=== PATIENT | male | born 1960 | race Caucasian/White ===

== ENCOUNTER 2018-04-21 07:20 | Day surgery (SDC) | payer OTHER ==
[2018-04-16 12:32] LABS: HEMATOCRIT 42.2 % (37.9-51.0); HEMOGLOBIN 14.7 g/dL (13.5-17.0); MEAN CORPUSCULAR HEMOGLOBIN 30.8 pg (27.0-33.4); MEAN CORPUSCULAR HGB CONC 34.7 g/dL (32.0-36.0); MEAN CORPUSCULAR VOLUME 89 fl (80-97); PLATELET COUNT 249 10^3/uL (150-450); RED BLOOD COUNT 4.76 10^6/uL (4.35-5.55); RED CELL DISTRIBUTION WIDTH 13.6 % (11.5-14.0); WHITE BLOOD COUNT 6.3 10^3/uL (4.0-10.5)
[2018-04-16 12:37] LABS: APPEARANCE,URINE CLEAR; BILIRUBIN,URINE NEGATIVE (NEGATIVE); COLOR,URINE COLORLESS; GLUCOSE, URINE NEGATIVE (NEGATIVE); KETONES,URINE NEGATIVE (NEGATIVE); LEUKOCYTE ESTERASE,URINE NEGATIVE (NEGATIVE); NITRITE,URINE NEGATIVE (NEGATIVE); PROTEIN,URINE NEGATIVE (NEGATIVE); URINE SPECIFIC GRAVITY 1.004; UROBILINOGEN,URINE NEGATIVE mg/dL (<2.0)
--- NOTE | 2018-04-16 12:37 | EKG REPORT ---
SEVERITY:- OTHERWISE NORMAL ECG - SINUS RHYTHM BORDERLINE LEFT AXIS DEVIATION : Confirmed by: Diamond Hanna MD 16-Apr-2018 12:37:31
[2018-04-16 12:54] LABS: ANION GAP 14 (5-19); BLOOD UREA NITROGEN 16 mg/dL (7-20); CALCIUM 9.5 mg/dL (8.4-10.2); CARBON DIOXIDE 25 mmol/L (22-30); CHLORIDE 104 mmol/L (98-107); GLUCOSE 89 mg/dL (75-110); POTASSIUM 4.4 mmol/L (3.6-5.0); SODIUM 142.8 mmol/L (137-145)
--- NOTE | 2018-04-16 13:13 | RADIOLOGY REPORT (SQ) ---
EXAM DESCRIPTION: CHEST PA/LATERAL COMPLETED DATE/TIME: 04/16/2018 1:01 pm REASON FOR STUDY: PRE OP COMPARISON: None. EXAM PARAMETERS: NUMBER OF VIEWS: two views TECHNIQUE: Digital Frontal and Lateral radiographic views of the chest acquired. RADIATION DOSE: NA LIMITATIONS: none FINDINGS: LUNGS AND PLEURA: No opacities, masses or pneumothorax. No pleural effusion. MEDIASTINUM AND HILAR STRUCTURES: No masses or contour abnormalities. HEART AND VASCULAR STRUCTURES: Heart normal size. No evidence for failure. BONES: Degenerative changes are identified in the thoracic spine. HARDWARE: None in the chest. OTHER: No other significant finding. IMPRESSION: NO SIGNIFICANT RADIOGRAPHIC FINDING IN THE CHEST. TECHNICAL DOCUMENTATION: JOB ID: [id number] [employer]- All Rights Reserved Reading location - IP/workstation name: [email or web address]
[~2018-04-21 07:20] MED LIST: CEFAZOLIN 2 GM/D5W RTU 2 GM/50 ML RTUPB IV PRN; LACTATED RINGERS 1000 ML IV PRN
[2018-04-21] MEDS ORDERED: CEFAZOLIN 2 GM/D5W RTU 2 GM/50 ML RTUPB IV ONE (08:09)
[2018-04-21] MEDS ORDERED: LIDOCAINE 1% INJ-PF (10 MG/ML) 30 ML SDV ONE (08:27)
[2018-04-21] MEDS ORDERED: BUPIVACAINE HCL 0.5%-EPI 1:200000 INJ/PF 30 ML VIAL ONE (08:27)
[2018-04-21] MEDS ORDERED: FENTANYL CITRATE INJ/PF 100 MCG/2 ML AMPUL ONE (09:15)
[2018-04-21] MEDS ORDERED: MIDAZOLAM 2 MG/2 ML INJ ONE (09:15)
[2018-04-21] MEDS ORDERED: KETOROLAC TROMETHAMINE 60 MG/2 ML SDV ONE (09:15)
[2018-04-21] MEDS ORDERED: PROPOFOL INJ 200 MG/20 ML VIAL IV ONE (09:15)
[2018-04-21] MEDS ORDERED: ACETAMINOPHEN 1,000 MG/100 ML RTUPB IV ONE (09:15)
[2018-04-21] MEDS ORDERED: ONDANSETRON HCL INJ/PF 4 MG/2 ML SDV ONE (09:15)
[2018-04-21] MEDS ORDERED: DEXAMETHASONE SOD PHOSPHATE INJ 4 MG/1 ML VIAL ONE (09:15)
[2018-04-21] MEDS ORDERED: FENTANYL CITRATE INJ/PF 100 MCG/2 ML AMPUL IV PRN ×3 (09:51)
[2018-04-21] MEDS ORDERED: OXYCODONE-ACETAMINOPHEN 5-325 MG TABLET PO PRN ×7 (09:51→10:41)
[2018-04-21] MEDS ORDERED: ONDANSETRON HCL INJ/PF 4 MG/2 ML SDV IV PRN (09:51)
[2018-04-21] MEDS ORDERED: MEPERIDINE HCL/PF INJ 25 MG/1 ML DISP.SYRIN IV PRN (09:51)
[2018-04-21] MEDS ORDERED: PROMETHAZINE HCL INJ 25 MG/1 ML VIAL IV PRN ×2 (09:51)
[2018-04-21] MEDS ORDERED: MORPHINE SULFATE 10 MG/ML INJ IV PRN (09:51)
[2018-04-21] MEDS ORDERED: DIPHENHYDRAMINE HCL 50 MG/ML VIAL IV PRN (09:51)
--- NOTE | 2018-04-21 10:03 | Operative Report ---
Operative Report DATE OF SURGERY: 04/21/18 PREOPERATIVE DIAGNOSIS: Right medial meniscal tear POSTOPERATIVE DIAGNOSIS: Bucket-handle tear right medial meniscus. 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 Intact ACL. Degenerative tear of the lateral meniscus. Grade 2 chondral malacia lateral compartment. Grade 2-3 chondral malacia patellofemoral compartment OPERATION: Arthroscopic right partial medial and lateral meniscectomy SURGEON: MANDY FLORES ANESTHESIA: LMAC ESTIMATED BLOOD LOSS: Minimal PROCEDURE: With the patient supine on the operative table the right lower extremities prepped and draped in a sterile fashion. The knee is insufflated with combination of Marcaine, Xylocaine, and epinephrine. Subsequent medial and lateral infrapatellar portals are created for the introduction of arthroscope and debridements mentation. The joint is examined in systematic fashion findings as above. Using combination mechanical bennett, Carter, and electric frequency ablation probe a partial medial meniscectomy was performed from proximal at 5:00 to 12:00 in the face of the dial. Similarly a partial lateral meniscectomy was performed from approximately 7:00 to 12:00 on the face of the dial. The joint is examined in systematic fashion no new findings. Instrumentation was removed. Portals reapproximated interrupted nylon. A sterile compressive dressing was applied. The patient's return to the PACU.
--- NOTE | 2018-04-21 10:05 | Discharge Summary ---
Discharge Summary (SDC) - Discharge Final Diagnosis: Right medial meniscal tear Date of Surgery: 04/21/18 Discharge Date: 04/21/18 Condition: Good Treatment or Instructions: Weightbearing as tolerated ambulation. Removed compressive wrap on Thursday. Prescriptions: Oxycodone HCl/Acetaminophen [Percocet 5-325 mg Tablet] 1 tab PO Q6 #40 tablet Referrals: DILLON SORTO FNP-C [Primary Care Provider] - Discharge Diet: As Tolerated, Regular Respiratory Treatments at Home: Deep Breathing/Coughing Discharge Activity: Balance Activity w/Rest, No Driving, No tub bath Home Care Assistance: None Needed Report the Following to Your Physician Immediately: Shortness of Breath, Fever over 101 Degrees, Drainage-Foul Smelling
[2018-04-21] MEDS ORDERED: OXYCODONE-ACETAMINOPHEN 5-325 MG TABLET ONE (10:44)
[2018-04-21 11:51] VITALS: BP 140/88
[2018-04-21] MEDS ORDERED: LIDOCAINE 2% INJ-PF (20 MG/ML) 2 ML AMPUL ONE (15:58)
== END 2018-04-21 11:50 | disposition home or self-care (01) ==
LOC: OROUT 07:20
PROVIDERS: ATTEND Orthopaedic Surgery
DX: M23.231 Derangement of other medial meniscus due to old tear or injury, right knee (principal); M23.200 Derangement of unspecified lateral meniscus due to old tear or injury, right knee; M22.41 Chondromalacia patellae, right knee; I10 Essential (primary) hypertension; Z96.652 Presence of left artificial knee joint; Z01.818 Encounter for other preprocedural examination; Z79.1 Long term (current) use of non-steroidal anti-inflammatories (NSAID); Z79.899 Other long term (current) drug therapy
CPT/HCPCS: 93005; 36415; 85027; 80048; 81001; 71046; 93010; 29880; J2250; J3490 ×3; J1100; J1885; J3010; J2405; J2704; J0690; J0131; 1400

== ENCOUNTER → 2018-07-06 | Outpatient (CLI) | payer OTHER ==
--- NOTE | 2018-07-06 15:08 | RADIOLOGY REPORT (SQ) ---
EXAM DESCRIPTION: CT ABD/PELVIS NO ORAL OR IV COMPLETED DATE/TIME: 07/06/2018 2:10 pm REASON FOR STUDY: LEFT FLANK PAIN R10.9 UNSPECIFIED ABDOMINAL PAIN COMPARISON: None. TECHNIQUE: CT scan of the abdomen and pelvis performed without intravenous or oral contrast. Images reviewed with lung, soft tissue, and bone windows. Reconstructed coronal and sagittal MPR images revi ewed. All images stored on PACS. All CT scanners at this facility use dose modulation, iterative reconstruction, and/or weight based d osing when appropriate to reduce radiation dose to as low as reasonably achievable (ALARA). [facility]: Dose Right [facility]: CareDose [facility]: Dose Right [facility]: Teradose 4D [facility]: Smart ORVIBO RADIATION DOSE: CT Rad equipment meets quality standard of care and radiation dose reduction techniq ues were employed. CTDIvol: 11.8 mGy. DLP: 709 mGy-cm.mGy. LIMITATIONS: None. FINDINGS: LOWER CHEST: No significant findings. No nodules or infiltrates. NON-CONTRASTED LIVER, SPLEEN, ADRENALS: Evaluation limited by lack of IV contrast. No identified sign ificant masses. PANCREAS: No masses. No peripancreatic inflammatory changes. GALLBLADDER: No identified stones by CT criteria. No inflammatory changes to suggest cholecystitis. RIGHT KIDNEY AND URETER: No suspicious masses. Assessment limited by lack of IV contrast. No signif icant calcifications. No hydronephrosis or hydroureter. LEFT KIDNEY AND URETER: No suspicious masses. Assessment limited by lack of IV contrast. No signifi cant calcifications. No hydronephrosis or hydroureter. AORTA AND RETROPERITONEUM: No aneurysm. No retroperitoneal masses or adenopathy. BOWEL AND PERITONEAL CAVITY: Mild sigmoid diverticulosis. No acute inflammatory changes. No obvious bowel mass. APPENDIX: Not identified. PELVIS, BLADDER, AND ABDOMINAL WALL:No abnormal masses. No free fluid. Bladder normal. BONES: Lumbar degenerative disc disease. OTHER: No other significant finding. IMPRESSION: 1. No acute urinary findings. 2. Diverticulosis coli. 3. Lumbar degenerative disc disease. COMMENT: Quality ID # [id number]: Final reports with documentation of one or more dose reduction techniques (e.g., Automated exposure control, adjustment of the mA and/or kV according to patient size, use of iterative reconstruction technique) TECHNICAL DOCUMENTATION: JOB ID: [id number] [employer]- All Rights Reserved Reading location - IP/workstation name: [email or web address]
== END ==
LOC: RAD 13:20
PROVIDERS: ATTEND Nurse Practitioner Family
DX: R10.9 Unspecified abdominal pain (principal)
CPT/HCPCS: 74176

== ENCOUNTER 2019-02-03 11:48 | Emergency (ER) | payer OTHER ==
--- NOTE | 2019-02-03 12:54 | ER Document Report ---
HPI - HPI Time Seen by Provider: 02/03/19 12:53 Pain Level: 5 Notes: 58-year-old male with a medical history of chronic back pain presents to the ED for evaluation of exacerbation of his right paraspinal back pain. Patient is Nick established with pain management, does see [facility], was seen approximately 2 days ago, given a Toradol injection. Patient has been seeing pain management for his back pain for the last 3 years, was not able to be seen today by pain management today, so came to the er. Denies any new trauma, recent falls. MRI of lumbar spine from September 04, 2015 showed: spondylolysis and mild ligament. Mild spinal stenosis at several levels. Disc herniation at L2-L3 contacts with transiting right L3 nerve root in the canal. patient states that he did have a lumbar MRI done approximately 3 days ago, is awaiting on report. denies fevers, chills, chest pain,palpitations, shortness of breath, dyspnea, nausea, vomiting, diarrhea, abdominal pain, hematuria,blurred vision, double vision, loss of vision, speech changes, LH, dizziness, syncope, headaches, wheezing, ST, URI, neck pain, weakness, bowel or bladder dysfunction, saddle anesthesia, worsening numbness or tingling lower extremities equally or n/t in BUE, muscle paralysis, weakness in bilateral upper or lower extremities equally or rash. Past Medical History - General Information source: Patient, Relative - Social History Smoking Status: Unknown if Ever Smoked Family History: Reviewed & Not Pertinent - Past Medical History Cardiac Medical History: Reports: Hx Hypertension Denies: Hx Coronary Artery Disease, Hx Heart Attack Pulmonary Medical History: Reports: Hx Bronchitis, Hx Pneumonia Denies: Hx Asthma, Hx COPD Neurological Medical History: Denies: Hx Cerebrovascular Accident, Hx Seizures Musculoskeletal Medical History: Reports Hx Arthritis - Immunizations Hx Diphtheria, Pertussis, Tetanus Vaccination: Yes Vertical Provider Document - CONSTITUTIONAL Agree With Documented VS: Yes Exam Limitations: No Limitations General Appearance: Moderate Distress Notes: PHYSICAL EXAMINATION: GENERAL: Well-appearing, well-nourished and in no acute distress. HEAD: Atraumatic, normocephalic. EYES: Pupils equal round and reactive to light, extraocular movements intact, sclera anicteric, conjunctiva are normal. ENT: Nares patent, oropharynx clear without exudates. Moist mucous membranes. NECK: Normal range of motion, supple without lymphadenopathy LUNGS: Breath sounds clear to auscultation bilaterally and equal. No wheezes rales or rhonchi. HEART: Regular rate and rhythm without murmurs ABDOMEN: Soft, nontender, nondistended abdomen. No guarding, no rebound. No masses appreciated. Musculoskeletal: Normal range of motion, no pitting or edema. No cyanosis. Pain with flexion and extension at 30 degrees, positive straight leg test bilaterally. Normal hip rotation. DTR +2 in BLE equally. Strength 5 out of 5 both distally and proximally to bilateral lower extremities normal motor and sensory function in BLE equally. Distal pulses + 2 BLE equally. Noted paraspinal tenderness near L2 and L3 on right. Strength 5 out of 5 in bilateral lower extremities equally. no spinal tenderness. No CVA tenderness bilaterally. Femoral pulses + 2 bilaterally and equally. No abrasions, scars, lacerations, ecchymosis of any recent trauma. normal gait. NEUROLOGICAL: Cranial nerves grossly intact. Normal speech, normal gait. Normal sensory, motor exams PSYCH: Normal mood, normal affect. SKIN: Warm, Dry, normal turgor, no rashes or lesions noted. - INFECTION CONTROL TRAVEL OUTSIDE OF THE [place] IN LAST 30 DAYS: No Course - Re-evaluation Re-evalutation: 02/03/19 15:15 Afebrile vitals stable and in moderate distress due to pain. Nurse's notes reviewed. Is Nick established with appropriate follow-up with donor specialist as well as pain management, recently had an MRI done that was outpatient due for chronic back issues. No focal neurological deficit noted on clinical exam. Will give patient pain medication while in the emergency room, will not prescribe patient pain medication due to the fact that he is established with pain management. After performing a Medical Screening Examination, I estimate there is LOW risk for EXPANDING OR RUPTURED ABDOMINAL AORTIC ANEURYSM, CAUDA EQUINA SYNDROME, EPIDURAL MASS ABSCESS OR LESION(S), OSTEOMYELITIS,PERSONAL HISTORY OF CANCER, IMMUNOSUPPERSSSION, HISTORY OF IV DRUG USE, FRACTURE, CORD COMPERSSION, CANCER, RETROPERITONEAL BLEED, SPINAL EPIDURAL HEMATOMA, or HERNIATED DISK CAUSING SEVERE SPINAL STENOSIS, thus I consider the discharge disposition reasonable. I have reevaluated this patient multiple times and no significant life threatening changes are noted. The patient and I have discussed the diagnosis and risks, and we agree with discharging home and close follow-up. We also discussed returning to the Emergency Department immediately if new or worsening symptoms occur with the understanding that symptoms and presentations can change. We have discussed the symptoms which are most concerning (e.g., saddle anesthesia, urinary or bowel incontinence or retention, changing or worsening pain) that necessitate immediate return. - Vital Signs Vital signs: Temp Pulse Resp BP Pulse Ox 97.9 F 62 17 178/96 H 94 02/03/19 12:00 02/03/19 12:00 02/03/19 12:00 02/03/19 12:00 02/03/19 12:00 Discharge - Discharge Clinical Impression: Acute exacerbation of chronic low back pain Condition: Stable Disposition: HOME, SELF-CARE Instructions: Low Back Pain ([facility]), Oral Narcotic Medication ([facility]), Pain Medication Injection ([facility]) Additional Instructions: You have been seen in the Emergency Department (ED) today for back pain. Apply heat to the area as often as you are able. Continue to keep active and avoid prolonged periods of bed rest. Please follow up with your doctor as soon as possible regarding today's ED visit and your back pain. Return to the ED for worsening back pain, fever, weakness or numbness of either leg, or if you develop either (1) an inability to urinate or have bowel movements, or (2) loss of your ability to control your bathroom functions (if you start having "accidents"), or if you develop other new symptoms that concern you.concern you. Do not drive, drink or operate machinery after receiving pain injection as it can cause sedation and impairment of cognitive function. Your will be driving home. Use lidocaine patches as directed. Please follow-up with pain management and your primary care provider within the next 24 to 48 hours. Return immediately for any new or worsening symptoms. Follow up with primary care provider, call tomorrow to make followup appointment. Prescriptions: Lidocaine/Menthol [Lidall 4%-1% Patch] 1 each TP TIDP PRN #20 adh..patch PRN Reason: Forms: Return to Work Referrals: DILLON SORTO FNP-C [Primary Care Provider] - Follow up as needed
[2019-02-03] MEDS ORDERED: HYDROCODONE/ACETAMINOPHEN 5-325 MG (6 TAB/ER DISP) PO PRN (13:14)
[2019-02-03] MEDS ORDERED: MORPHINE SULFATE 10 MG/ML INJ IM ONE (13:14)
[2019-02-03 13:52] VITALS: BP 161/83
== END 2019-02-03 13:53 | disposition home or self-care (01) ==
LOC: ER 11:48
DX: M54.5 Low back pain (principal); M54.9 Dorsalgia, unspecified; G89.29 Other chronic pain; I10 Essential (primary) hypertension
CPT/HCPCS: J2270

== ENCOUNTER 2019-12-12 13:56 | Emergency (ER) | payer OTHER ==
[2019-12-12] MEDS ORDERED: LIDOCAINE 1%/EPINEPHRINE INJ 20 ML VIAL INJ ONE (15:27)
[2019-12-12] MEDS ORDERED: DIPH/PERTUSS(ACELL)/TETANUS VAC/PF 0.5 ML SYR (>=10YO) IM ONE ×2 (15:27→16:45)
--- NOTE | 2019-12-12 15:29 | ER Document Report ---
HPI - HPI Patient complains to provider of: left leg laceration Notes: 59-year-old male with past medical history of hypertension, left knee replacement, and right knee pain presenting with 2 cm laceration on the lateral aspect of his left knee. Incident occurred about 130 this afternoon. He hit his leg against a tire shredder while at work. He does not know when his last tetanus shot was. States the pain is more of a burning sensation at this time. States that he takes tramadol at night. Does not desire pain medication at this time. Denies any fevers, chills or additional symptoms at this time. Past Medical History - Social History Smoking Status: Never Smoker Family History: Reviewed & Not Pertinent - Past Medical History Cardiac Medical History: Reports: Hx Hypertension Denies: Hx Coronary Artery Disease, Hx Heart Attack Pulmonary Medical History: Reports: Hx Bronchitis, Hx Pneumonia Denies: Hx Asthma, Hx COPD Neurological Medical History: Denies: Hx Cerebrovascular Accident, Hx Seizures Renal/ Medical History: Denies: Hx Peritoneal Dialysis Musculoskeletal Medical History: Reports Hx Arthritis Past Surgical History: Reports: Other Other: left knee replacement - Immunizations Hx Diphtheria, Pertussis, Tetanus Vaccination: Yes Vertical Provider Document - CONSTITUTIONAL Notes: Adult General: GENERAL: Alert, interacts well. No acute distress HEAD: Normocephalic, atraumatic EYES: Pupils equal, round and reactive to light. Extraocular movements intact. ENT: Airway patent. Nares patent. NECK: Full range of motion. Supple. Trachea midline. ABDOMEN: Soft, nontender. Nondistended. GENITOURINARY: Deferred EXTREMITIES: Moves all 4 extremities spontaneously. BACK: Moves all extremities with full range of motion. NEUROLOGICAL: Alert and oriented x3. Normal speech. Strength 5/ 5 in all extremities. PSYCH: Normal affect, normal mood. SKIN: Warm, dry, normal turgor. 2 cm laceration on lateral left knee. - INFECTION CONTROL TRAVEL OUTSIDE OF THE [place] IN LAST 30 DAYS: No Course - Re-evaluation Re-evalutation: Patient with a 2 cm laceration along lateral left knee. Imaging was performed which shows no foreign bodies. There is a samll radioopacity superior to the patella. I also suspect this is due to calcification vs foreign body. Patient has no pain in the suprapatellar region. Patient is agreeable to laceration repair. Is also agreeable to receive tetanus vaccine as he is uncertain as to when his last tetanus was. Laceration was repaired with 4, 4-0 ethilin sutures. Good approximation and hemostasis was achieved. Patient tolerated procedure. Patient was instructed to follow up with his primary care for suture removal in 7-10 days. Return precautions discussed to include fever, chills, worsening pain, discharge. Patient acknowledges and verbalizes understanding of instructions and plan. All questions answered. 12/13/19 11:02 - Vital Signs Vital signs: Temp Pulse Resp BP Pulse Ox 99.4 F 107 H 16 188/95 H 97 12/12/19 14:00 12/12/19 14:00 12/12/19 14:00 12/12/19 14:00 12/12/19 14:00 Procedures - Laceration/Wound Repair Left Knee Wound length (cm): 2 Wound's Depth, Shape: Superficial, Linear Laceration pre-procedure: Shur-Clens applied Anesthetic type: 1% Lidocaine w/epi Suture Size/Type: 4:0, Ethilon Number of Sutures: 4 Discharge - Discharge Clinical Impression: Laceration Condition: Stable Disposition: HOME, SELF-CARE Instructions: Antibiotic Ointment Protection ([facility]), Laceration Care ([facility]), Soap Cleansing ([facility]), Tetanus Immunization Given ([facility]) Additional Instructions: Please return to your primary doctor, the ED, or an urgent care in 7 days for suture removal. Return immediately if you develop spreading redness around the wound, pus from the wound, worsening pain, or a fever of >100.4. Keep the area clean and dry. Wash gently with soap and water twice daily and cover with antibiotic ointment. Referrals: DILLON SORTO FNP-C [Primary Care Provider] - Follow up as needed
--- NOTE | 2019-12-12 16:05 | RADIOLOGY REPORT (SQ) ---
EXAM DESCRIPTION: KNEE LEFT 2 VIEWS IMAGES COMPLETED DATE/TIME: 12/12/2019 3:50 pm REASON FOR STUDY: laceration, eval foreign body COMPARISON: None. NUMBER OF VIEWS: Two views. TECHNIQUE: AP and lateral radiographic images acquired of the left knee. LIMITATIONS: None. FINDINGS: MINERALIZATION: Normal. BONES: No acute fracture or dislocation. No worrisome bone lesions. JOINT: Prior total knee arthroplasty. SOFT TISSUES: Small soft tissue calcification anterior to the distal femur and superior to the patell a. OTHER: No other significant finding. IMPRESSION: Postsurgical changes in the left knee with prior total arthroplasty. No evidence of an acute fracture or dislocation. Small radiopacity superior to the patella demonstrate on the lateral film is most consistent with soft tissue calcification. TECHNICAL DOCUMENTATION: JOB ID: [id number] [employer]- All Rights Reserved Reading location - IP/workstation name: [email or web address]
[2019-12-12 17:26] VITALS: BP 168/95
== END 2019-12-12 17:26 | disposition home or self-care (01) ==
LOC: ER 13:56
DX: S81.012A Laceration without foreign body, left knee, initial encounter (principal); W22.09XA Striking against other stationary object, initial encounter; Y99.0 Civilian activity done for income or pay; I10 Essential (primary) hypertension; Z23 Encounter for immunization; Z96.652 Presence of left artificial knee joint
CPT/HCPCS: 99283; 90471; 73560; 90715; 12001; J3490

== ENCOUNTER 2020-01-16 10:49 | Day surgery (SDC) | payer OTHER ==
[2019-12-29 10:24] LABS: HEMATOCRIT 43.2 % (37.9-51.0); HEMOGLOBIN 14.5 g/dL (13.5-17.0); MEAN CORPUSCULAR HEMOGLOBIN 29.8 pg (27.0-33.4); MEAN CORPUSCULAR HGB CONC 33.5 g/dL (32.0-36.0); MEAN CORPUSCULAR VOLUME 89 fl (80-97); PLATELET COUNT 243 10^3/uL (150-450); RED BLOOD COUNT 4.86 10^6/uL (4.35-5.55); RED CELL DISTRIBUTION WIDTH 14.5 % (11.5-14.0); WHITE BLOOD COUNT 6.5 10^3/uL (4.0-10.5)
[2019-12-29 10:40] LABS: APPEARANCE,URINE CLEAR; BILIRUBIN,URINE NEGATIVE (NEGATIVE); COLOR,URINE STRAW; GLUCOSE, URINE NEGATIVE (NEGATIVE); KETONES,URINE NEGATIVE (NEGATIVE); LEUKOCYTE ESTERASE,URINE TRACE (NEGATIVE); NITRITE,URINE NEGATIVE (NEGATIVE); PROTEIN,URINE NEGATIVE (NEGATIVE); URINE SPECIFIC GRAVITY 1.005; UROBILINOGEN,URINE NEGATIVE mg/dL (<2.0)
[2019-12-29 10:52] LABS: ANION GAP 7 (5-19); BLOOD UREA NITROGEN 18 mg/dL (7-20); CALCIUM 9.9 mg/dL (8.4-10.2); CARBON DIOXIDE 29 mmol/L (22-30); CHLORIDE 104 mmol/L (98-107); GLUCOSE 99 mg/dL (75-110); POTASSIUM 5.1 mmol/L (3.6-5.0)
--- NOTE | 2019-12-29 12:12 | RADIOLOGY REPORT (SQ) ---
EXAM DESCRIPTION: CHEST PA/LATERAL IMAGES COMPLETED DATE/TIME: 12/29/2019 9:43 am REASON FOR STUDY: PRE-OP COMPARISON: 04/16/2018. EXAM PARAMETERS: NUMBER OF VIEWS: two views TECHNIQUE: Digital Frontal and Lateral radiographic views of the chest acquired. RADIATION DOSE: NA LIMITATIONS: none FINDINGS: LUNGS AND PLEURA: No opacities, masses or pneumothorax. No pleural effusion. MEDIASTINUM AND HILAR STRUCTURES: No masses or contour abnormalities. HEART AND VASCULAR STRUCTURES: Heart normal size. No evidence for failure. BONES: No acute findings. HARDWARE: None in the chest. OTHER: No other significant finding. IMPRESSION: NO SIGNIFICANT RADIOGRAPHIC FINDING IN THE CHEST. TECHNICAL DOCUMENTATION: JOB ID: [id number] 2010 [employer]- All Rights Reserved Reading location - IP/workstation name: [email or web address]
--- NOTE | 2019-12-29 13:18 | EKG REPORT ---
SEVERITY:- OTHERWISE NORMAL ECG - SINUS BRADYCARDIA BORDERLINE LEFT AXIS DEVIATION : Confirmed by: Girish Gonzalez MD 29-Dec-2019 13:17:38
[~2020-01-16 10:49] MED LIST changes: +FENTANYL CITRATE INJ/PF 100 MCG/2 ML AMPUL ONE; +LIDOCAINE 0.5% INJ-PF (5 MG/ML) 50 ML SDV SUBCUT PRN; +MIDAZOLAM 2 MG/2 ML INJ ONE; +ONDANSETRON HCL INJ/PF 4 MG/2 ML SDV ONE; +PROPOFOL INJ 200 MG/20 ML VIAL IV ONE
[2020-01-16] MEDS ORDERED: CEFAZOLIN 2 GM/D5W RTU 2 GM/50 ML RTUPB IV ONE (11:07)
[2020-01-16] MEDS ORDERED: BUPIVACAINE HCL 0.5 % INJ/PF 30 ML SDV ONE (14:44)
[2020-01-16] MEDS ORDERED: LIDOCAINE 1%/EPINEPHRINE INJ 20 ML VIAL ONE (14:44)
[2020-01-16] MEDS ORDERED: DIPHENHYDRAMINE HCL 50 MG/ML VIAL IV PRN (15:05)
[2020-01-16] MEDS ORDERED: ONDANSETRON HCL INJ/PF 4 MG/2 ML SDV IV PRN (15:05)
[2020-01-16] MEDS ORDERED: FENTANYL CITRATE INJ/PF 100 MCG/2 ML AMPUL IV PRN ×3 (15:05)
[2020-01-16] MEDS ORDERED: MEPERIDINE HCL/PF INJ 25 MG/1 ML DISP.SYRIN IV PRN (15:05)
[2020-01-16] MEDS ORDERED: PROMETHAZINE HCL INJ 25 MG/1 ML VIAL IV PRN ×2 (15:05)
--- NOTE | 2020-01-16 15:17 | Operative Report ---
Operative Report DATE OF SURGERY: 01/16/20 PREOPERATIVE DIAGNOSIS: Right medial meniscal tear POSTOPERATIVE DIAGNOSIS: Right medial meniscal tear. 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 Absent ACL. Lateral meniscal tear. Grade III chondromalacia lateral compartment. Grade II-III chondromalacia of the patellofemoral compartment OPERATION: Arthroscopic right partial medial and lateral meniscectomies SURGEON: MANDY FLORES ANESTHESIA: LMAC PROCEDURE: With the patient supine on the operating table the right lower extremities prepped and draped in sterile fashion. The knee is insufflated with a combination Marcaine, Xylocaine, and epinephrine. Subsequent medial and lateral infrapatellar portals are created for the introduction of arthroscope and debrid ements mentation. Joint is examined in systematic fashion findings as above. Using combination of mechanical rongeurs, mechanical shaver, electric frequency ablation probe a partial medial meniscectomy is performed from approximately 4:00 to 12:00 on the face of the dial. Similarly a partial lateral meniscectomy performed from approximately 7:00 to 10:00 on the face of the dial. The joint is again against salmon in a systematic fashion with no new findings. Instrumentation was removed. Portals reapproximated Strupp and nylon. A sterile compressive dressing applied. The patient is returned to PACU in satisfactory condition.
--- NOTE | 2020-01-16 15:19 | Discharge Summary ---
Discharge Summary (SDC) - Discharge Final Diagnosis: Right medial meniscectomy Date of Surgery: 01/16/20 Discharge Date: 01/16/20 Condition: Good Treatment or Instructions: Weightbearing as tolerated ambulation. Please remove the compressive wrap on Thursday. Underneath this there is an OpSite dressing that can be left in place until you return to the office. Once the compressive wrap is removed you may shower but please do not immerse it in a tub or pool. Referrals: DILLON SORTO FNP-C [Primary Care Provider] - MANDY FLORES MD [ACTIVE STAFF] - 01/31/20 11:15 am Discharge Diet: Regular Respiratory Treatments at Home: Deep Breathing/Coughing Discharge Activity: Activity As Tolerated, No tub bath Home Care Assistance: None Needed Report the Following to Your Physician Immediately: Shortness of Breath, Fever over 101 Degrees, Drainage-Foul Smelling
[2020-01-16] MEDS: FENTANYL CITRATE INJ/PF 100 MCG/2 ML AMPUL ONE ×2 (15:40→15:45)
[2020-01-16 16:46] VITALS: BP 141/82
== END 2020-01-16 16:55 | disposition home or self-care (01) ==
LOC: OROUT 10:49
PROVIDERS: ATTEND Orthopaedic Surgery
DX: M23.303 Other meniscus derangements, unspecified medial meniscus, right knee (principal); M23.300 Other meniscus derangements, unspecified lateral meniscus, right knee; M22.41 Chondromalacia patellae, right knee; Z03.818 Encounter for observation for suspected exposure to other biological agents ruled out; I10 Essential (primary) hypertension; N40.0 Benign prostatic hyperplasia without lower urinary tract symptoms; Z88.5 Allergy status to narcotic agent; Z79.899 Other long term (current) drug therapy
CPT/HCPCS: 29880; 93005; 36415 ×2; 84132; 85027; 87635 ×2; 80048; 81001; 71046; 93010; J2250; J3490 ×2; J3010; J2405; J2704; J0690; C9803 ×2; 1400